=== PATIENT | female | born 1945 | race Caucasian/White ===

== ENCOUNTER 2024-11-05 09:08 | Outpatient (AMB) | payer MEDICARE, OTHER, SELFPAY ==
--- NOTE | 2024-11-05 09:09 | A.OFFVIS_ITS ---
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 She is presenting with follow-up after cataract surgery and concerns of hallucinations and cognitive challenges. She underwent cataract surgery recently, and her vision has improved significantly. There is an ongoing issue of hallucinations, for which she is being treated with quetiapine, and these incidents are becoming more frequent. Cognitive difficulties are a concern as she occasionally experiences confusion over personal relationships. Her memory is reported to be functioning adequately, but attention deficits are recognized. Social interaction appears be neficial for her alertness. The decision was made to continue with the current medication regimen, without modifying the quetiapine dosage at this time. [facility] Medical History (Updated 11/05/24 @ 09:13 by John Baptitse MD) Anxiety Carpal tunnel syndrome Migraine Cerebral microvascular disease Mild dementia Alzheimer dementia Surgical History (Updated 10/29/24 @ 08:17 by Meghan Ling CMA) S/P aortic valve replacement Review of Systems Const Details: - Allergic/Immunologic: Denies recent illnesses or infections. - Eyes: Reports improved vision post-cataract surgery. - Neurological: Reports good memory; Denies new neurological symptoms. - Psychiatric: Reports good mood; Denies depression, reports hallucinations and confusion. Physical Exam Neuro Other: Mental Status: Alert and awake with normal spontaneity of speech fluency comprehension and affect. She could not recognize the person with her. Cranial Nerves: CN II: Visual butt full to confrontation, visual acuity intact. CN III, IV, : Pupils equal, round, reactive to light and accommodation. Extraocular movements are normal. CN V: Facial sensation is normal. CN VII: Facial movements symmetrical. CN VIII: Hearing intact to bedside conversation is normal. CN IX, X: Palate elevates symmetrically. CN XI: Shoulder shrug and head turn symmetrical. CN XII: Tongue midline without atrophy or fasciculations. Gait and Station: No obvious gait abnormality. No ataxia or instability. Extrapyramidal: Full facial expressions and blinking. No rigidity. Movements are appropriate with no tremor or abnormality. Speech: Normal; no dysarthria or tremor. Assessment & Plan Assessment & Plan (1) Alzheimer dementia: Comment: NCV/EMG UE This is a normal study. 11/10/21. MRI brain WO at [facility] in Oct 2018: mild to mod MVD and mild diff atrophy. Code(s): G30.9 - Alzheimer's disease, unspecified; F02.80 - Dementia in other diseases classified elsewhere, unspecified severity, without behavioral disturbance, psychotic disturbance, mood disturbance, and anxiety Category: Medical Qualifiers: Alzheimer's disease onset: late onset Dementia severity: moderate Dementia behavioral or psychological symptom: with other behavioral disturbance Qualified Code(s): G30.1 - Alzheimer's disease with late onset; F02.B18 - Dementia in other diseases classified elsewhere, moderate, with other behavioral disturbance Plan Impression: Moderately severe dementia probably of Alzheimer type with behavioral issues Rec: a: Memantine 10mg bid b: Quetiapine 25mg one at night c: Sertraline 25mg one in am Medications: New memantine 10 mg PO BID 180 tabs 1RF quetiapine 25 mg PO BEDTIME 90 tabs 1RF sertraline 25 mg PO DAILY 90 tabs 1RF Coding Level of Care Code Est Pt Level 4 (24250) Diagnoses Moderate late onset Alzheimer's dementia with other behavioral disturbance G30.1; F02.B18 Alzheimer's disease onset: late onset Dementia severity: moderate Dementia behavioral or psychological symptom: with other behavioral disturbance
--- OUTSIDE RECORDS SUMMARY | 2024-11-05 09:50 | XMS_ITS | Clinical Summary ---
Author Organization [address] Address [address] [place] [phone] Phone Care Team Providers [employer] Name Role Phone Sheeba Hayes MD Primary Care Provider [phone] Allergies Active Allergy Reactions Criticality Noted Date Comments Lisinopril Cough 10/05/2011 Medications amoxicillin (AMOXIL) 500 mg capsule TAKE 4 CAPSULES BY MOUTH 1 HOUR PRIOR TO DENTAL APT. 06/30/19 22 Active memantine (NAMENDA) 10 mg tablet Take 1 tablet (10 mg total) by mouth 2 (two) times a day. 01/07/20 21 Active Arexvy, PF, 120 mcg/0.5 mL suspension for reconstitution 12/24/19 23 Active sertraline (ZOLOFT) 25 mg tablet Take 1 tablet (25 mg total) by mouth 1 (one) time each day. 08/23/19 23 Active Shingrix, PF, 50 mcg/0.5 mL suspension for reconstitution 12/09/19 23 Active losartan (COZAAR) 25 mg tablet TAKE 1 TABLET BY MOUTH EVERY DAY 90 tablet 1 02/23/20 24 Active QUEtiapine (SEROquel) 25 mg tablet Take 1 tablet (25 mg total) by mouth 1 (one) time each day. Active fluticasone propionate (FLONASE) 50 mcg/actuation nasal spray Administer 2 sprays into each nostril 1 (one) time each day. Shake gently. Before first use, prime pump. After use, clean tip and replace cap. 16 g 5 03/29/19 25 026 Active Additional Information Patient not taking.Reported on 10/17/2024 warfarin (COUMADIN) 2.5 mg tablet TAKE 1-2 TABLETS BY MOUTH DAILY. 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 Status post aortic valve rep lacement with bioprosthetic valve 01/26/2024 Dementia ([facility] V24, [facility] V28) 02/19/2019 Influenza A 04/14/2017 Gallstones 06/13/2014 Diverticulosis of sigmoid colon 06/05/2014 Osteopenia 10/21/2010 Aneurysm of thoracic aorta ([facility] V24) 011 Overview (05/20/2023): ascending aortic aneurysm up to 4.5 cm in diameter at the level of the main pulmonary artery, MRi of chest 2011- no change, being followed with Dr. 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 (Primary Dx); Status post aortic valve replacement with bioprosthetic valve 10/17/2024 10:00 AM EDT Consult [address] [phone] Sheeba Hayes MD Severe late onset Alzheimer's dementia without behavioral disturbance, psychotic disturbance, mood disturbance, or anxiety (CMS/HCC V24, CMS/HCC V28) (Primary Dx); Thoracic aortic aneurysm without rupture, unspecified part (CMS/HCC V24); Hypertension goal BP (blood pressure) < 140/90; History of heart valve replacement; Hyperchylomicronemia; Preop cardiovascular exam 10/17/2024 Anticoagulation - Warfarin Visit [address] [phone] Minda Sanderson LPN [facility] (current) use of anticoagulants (Primary Dx); Status post aortic valve replacement with bioprosthetic valve 10/02/2024 Anticoagulation - Warfarin Visit [address] [phone] Niru Moreno LPN [facility] (current) use of anticoagulants (Primary Dx); Status post aortic valve replacement with bioprosthetic valve 09/18/2024 Anticoagulation - Warfarin Visit [address] [phone] 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 (Primary Dx); Status post aortic valve replacement with bioprosthetic valve 09/06/2024 9:45 AM EDT Office Visit [address] [phone] Sheeba Hayes MD Status post aortic valve replacement with bioprosthetic valve (Primary Dx); [facility] (current) use of anticoagulants; Severe late onset Alzheimer's dementia without behavioral disturbance, psychotic disturbance, mood disturbance, or anxiety (CMS/HCC V24, CMS/HCC V28) 09/04/2024 [facility] [address] [phone] 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 (Primary Dx); Status post aortic valve replacement with bioprosthetic valve 08/21/2024 Anticoagulation - Warfarin Visit [address] [phone] 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 (Primary Dx); Status post aortic valve replacement with bioprosthetic valve 08/17/2024 Telephone Adult Medicine [address] [phone] Sheeba Hayes MD Forms/questionnaires 08/13/2024 Telephone Adult Medicine [address] [phone] Sheeba Hayes MD Forms/questionnaires 08/07/2024 Anticoagulation - Warfarin Visit [address] [phone] Minda Sanderson LPN [facility] (current) use of anticoagulants (Primary Dx); Status post aortic valve replacement with bioprosthetic valve from Last 3 Months Immunizations Name Administration Dates Next Due Influenza Quadravalent, MDCK , 0.5ml, preservative free (Flucelvax) 6mo and older 03/20/2018 Influenza trivalent, 0.5mL ( Fluzone High-dose) 65yo and older 12/23/2020,02/19/2019 Influenza trivalent, with pr eservative (Fluzone; Afluria) 6mo and older 12/04/2012,04/02/2012,02/27/2008,02/15,02/24/2006 Influenza, Unspecified 12/22/2019 Pneumococcal conjugate 13 va lent (Prevnar 13, PCV13) 2mo and older 08/26/2015 Pneumococcal polysaccharide 23 valent (Pneumovax 23) 2yo and older 06/24/2010 Td Tetanus diptheria (Tdvax) 7yo and older 06/13/2003 Tdap Tetanus diptheria acell ular pertussis (Boostrix; Adacel) 7yo and older 11/17/2022,12/04/2012 Zoster Live 11/28/2015 Surgical History Surgery Date Site/Laterality Comments AORTIC VALVE REPLACEMENT 02/08/06 PROCEDURE: HISTORICAL AORTIC VALVE REPL TUBAL LIGATION PROCEDURE: HISTORICAL TUBAL LIGATION COLONOSCOPY 03/18 PROCEDURE: VA COLONOSCOPY STOMA DX INCLUDING COLLJ SPEC SPX OTHER SURGICAL HISTORY 04/16/14 PROCEDURE: COLON CA SCRN NOT HI RSK IND; COMMENT: tics; repeat in ten yrs if healthy Medical History Medical History Date Comments Other and unspecified hyperlipidemia DX:Other and unspecified hyperlipidemia Obesity, unspecified DX:Obesity, unspecified Aortic valve disorders 09/02/2005 DX:Aortic valve disorders; COMMENT: severe, echo 06/17 antibiotic prophylaxis Hypertension goal BP (blood pressure) < 140/90 03/13/2010 DX:Hypertension goal BP (blo od pressure) < 140/90 Anticoagulated on Coumadin 06/20/2014 DX:An ticoagulated on Coumadin Family History Medical History Relation Name Comments ALS Father age 71 Breast cancer Sister dx'd 60s Coronary artery disease Neg Hx no p remature CAD Relation Name Status Comments Father Sister dx'd 60s Alive Social History Tobacco Use Types Packs/Day Years Used Date Smoking Tobacco: Former Cigarettes Q uit: 03/14/1974 Smokeless Tobacco: Never Tobacco Cessation:Counseling Given: Not Answered Alcohol Use Standard Drinks/Week Comments Yes 0 (1 standard drink = 0.6 oz pur e alcohol) Housing Instability Answer Date Recorde d Are you worried that in the next 2 months you may not have stable housing? No 09/04/2024 Food Access & Nutrition Answer Date Rec orded Do you have access to a vari ety of food including fruits and vegetables? Yes 09/04/2024 Access to Healthcare Answer Date Record ed Within the last 3 months, ho w many times did you visit the emergency department for your medical care? 1 09/04/2024 Health Literacy Answer Date Recorded How often do you need to hav e someone help you when you read instructions, pamphlets, or other written material from your doctor or pharmacy? Often 09/04/2024 Caregiver: How often do you need to have someone help you when you read instructions, pamphlets, or other written material from your doctor or pharmacy? Not on file 09/04/2024 Financial Risk Answer Date Recorded How hard is it for you to pa y for the very basics like food, housing, medical care, and air conditioning / heating? Patient declined 09/04/2024 Transportation Answer Date Recorded Has the lack of transportati on kept you from meetings, work, or from getting things needed for daily living? No Has the lack of transportati on kept you from medical appointments or from getting medications? No 09/04/2024 Social Isolation Answer Date Recorded How often do you feel lonely or isolated from those around you? Sometimes 09/04/2024 Food Risk Answer Date Recorded Within the past 12 months we worried whether our food would run out before we got money to buy more. Never true 09/04/2024 Within the past 12 months th e food we bought just didn't last and we didn't have money to get more. Never true 09/04/2024 Dependent Care Answer Date Recorded Do you need help finding or paying for care for your loved ones. For example, child psychology teacher or elderly care for an older adult? Patient declined 09/04/2024 Education Answer Date Recorded Do you think completing more education or training, like finishing a GED, going to college, or learning a trade, would be helpful for you? Patient declined 09/04/2024 Employment and Income Answer Date Recor ded During the last four weeks, have you been actively looking for work? No 09/04/2024 Living Situation Answer Date Recorded What is your living situation? 0 09/04/2024 Comments Unknown Sex and Gender Information Value Date Recorded Sex Assigned at Not on file Legal Sex Female 4:48 AM EST Gender Identity Not on file Sexual Orientation Not on file Obstetrics History Last Filed Vital Signs Vital Sign Reading Time Taken Comments Blood Pressure 108/70 10/17/2024 10:29 AM EDT Pulse 74 10/17/2024 10:29 AM EDT Temperature 36.4 C (97.5 F) 10/17/2024 10:29 AM EDT Respiratory Rate 14 10/17/2024 10:29 AM EDT Oxygen Saturation 96% 10/17/2024 10:29 AM EDT Inhaled Oxygen Concentration - - Weight 73.9 kg (163 lb) 10/17/2024 10:29 AM EDT Height 160 cm (5' 3 ) 10/17/2024 10:29 AM EDT Body Mass Index 28.87 10/17/2024 10:29 AM EDT Plan of Treatment Upcoming Encounters Date Type Department Care Team (Late st Contact Info) Description 02/18/2025 2:30 PM EST Office Visit Adult Medicine [facility] [address] [place] [phone] Sheeba Hayes MD [address] [place] [address] Health Maintenance Due Date Last Done Comments Hepatitis C Screening 02/20/2022 Falls Risk Assessment 11/18/2023 11/17/2022 Medicare Annual Wellness Visit 11/18/2023 11/17/2022 COVID-19 Vaccine ( season) 2024 12/05/2023, 05/26/2023, 12/23/2022, Additional history exists Influenza Vaccine (#1) 2024 , 12/14/2021, 12/23/2020, Additional history exists Hypertension/CHF/CAD Annual BMP Blood Test 04/12/2025 04/12/2024, 03/23/2024 Social Influencers of Health Screening 09/04/2025 09/04/2024 Osteoporosis Screening (Bone Density Screening) 06/16/2026 06/16/2016 Cholesterol Screening (Lipid Panel) 09/04/2026 09/04/2021 DTaP,Tdap,and Td Vaccines (4 - Td or Tdap) 11/17/2032 11/17/2022, 12/04/2012, 06/13/2003 Pneumococcal Vaccine: 50+ Years Completed 08/26/2015, 06/24/2010 RSV Immunization Adult Patients Completed 12/23/2022, 12/08/2022 Zoster Vaccines Completed 05/26/2023, 11/13, 11/28/2015, Additional history exists Depression Screening Completed 09/04/2024 HIB Vaccines Aged Out No longer eligi ble based on patient's age to complete this topic HPV Vaccines Aged Out No longer eligi ble based on patient's age to complete this topic Hepatitis A Vaccines Aged Out No long er eligible based on patient's age to complete this topic Hepatitis B Vaccines Aged Out No long er eligible based on patient's age to complete this topic IPV Vaccines Aged Out No longer eligi ble based on patient's age to complete this topic MMR Vaccines Aged Out No longer eligi ble based on patient's age to complete this topic Meningococcal ACWY Vaccine Aged Out N o longer eligible based on patient's age to complete this topic Meningococcal B Vaccine Aged Out No l onger eligible based on patient's age to complete this topic RSV Immunization Patients Under 20 months Aged Out No longer eligible based on patient's age to complete this topic Varicella Vaccines Aged Out No longer eligible based on patient's age to complete this topic Procedures Procedure Name Priority Date/Time Associated Diagnosis Comments PROTHROMBIN TIME WITH INR 10/23/2024 PROTHROMBIN TIME WITH INR Routine 10/23/2024 ECG Routine 10/17/2024 2:55 PM EDT PROTHROMBIN TIME WITH INR 10/17/2024 PROTHROMBIN TIME WITH INR 10/16/2024 PROTHROMBIN TIME WITH INR Routine 10/16/2024 PROTHROMBIN TIME WITH INR 10/02/2024 PROTHROMBIN TIME WITH INR Routine 10/02/2024 PROTHROMBIN TIME WITH INR 09/18/2024 PROTHROMBIN TIME WITH INR Routine 09/18/2024 PROTHROMBIN TIME WITH INR 09/04/2024 PROTHROMBIN TIME WITH INR Routine 09/04/2024 PROTHROMBIN TIME WITH INR 08/21/2024 PROTHROMBIN TIME WITH INR Routine 08/21/2024 PROTHROMBIN TIME WITH INR 08/07/2024 PROTHROMBIN TIME WITH INR Routine 08/07/2024 COMPREHENSIVE METABOLIC PANEL Routine 03/23/2024 2:01 PM EST Dementia (CMS/HCC V24, CMS/HCC V28) Sleep apnea Hyperlipidemia Obesity DXA BONE DENSITY STUDY 1+ SITS AXIAL SKEL Routine 06/16/2016 3:57 PM EDT Other specified disorders of bone density and structure, unspecified site from Last 3 Months or Most Recently Relevant to Health Maintenance Results * Prothrombin time with INR (10/23/2024) Only the most recent of15 resultswithin the time period is included. us Provider [facility] LAB BLOOD ORDERABLES Fin al Result * ECG (10/17/2024 2:55 PM EDT) Historical Provider ECG ORDERABLES Final Res ult * Comprehensive metabolic panel (03/23/2024 2:01 PM EST) Sodium 140 133 - 145 mmol/L LAB CHEMISTRY METHOD 03/24/2024 12:[address] [facility] Potassium 4.5 3.5 - 5.5 mmol/L LAB CHEMISTRY METHOD 03/24/2024 12:[address] [facility] Chloride 108 96 - 110 mmol/L LAB CHEMISTRY METHOD 03/24/2024 12:[address] [facility] CO2 28 21 - 32 mmol/L LAB CHEMISTRY METHOD 03/24/2024 12:[address] [facility] Anion Gap 4 3 - 11 LAB CHEMISTRY METHOD 03/24/2024 12:[address] [facility] Glucose 81 70 - 100 mg/dL LAB CHEMISTRY METHOD 03/24/2024 12:[address] [facility] BUN 23 5 - 25 mg/dL LAB CHEMISTRY METHOD 03/24/2024 12:[address] [facility] Creatinine 0.96 0.50 - 1.10 mg/dL LAB CHEMISTRY METHOD 03/24/2024 12:[address] [facility] eGFR 61 >=60 mL/min/1. 73m2 LAB CHEMISTRY METHOD 03/24/2024 12:[address] [facility] Comment:Calculation based on the Chronic Kidney Disease Epidemiology Collaboration (CKD-EPI) equation refit without adjustment for race. BUN/Creatinine Ratio 24.0 LAB CHEMISTRY METHOD 03/24/2024 12:[address] [facility] Calcium 8.6 8.5 - 10.5 mg/dL LAB CHEMISTRY METHOD 03/24/2024 12:[address] [facility] AST (SGOT) 18 10 - 42 unit/L LAB CHEMISTRY METHOD 03/24/2024 12:[address] [facility] ALT (SGPT) 26 10 - 60 unit/L LAB CHEMISTRY METHOD 03/24/2024 12:[address] [facility] Alkaline Phosphatase 89 42 - 121 unit/L LAB CHEMISTRY METHOD 03/24/2024 12:[address] [facility] Total Protein 6.4 6.0 - 8.0 g/dL LAB CHEMISTRY METHOD 03/24/2024 12:[address] [facility] Albumin 3.9 3.2 - 5.0 g/dL LAB CHEMISTRY METHOD 03/24/2024 12:[address] [facility] Total Bilirubin 0.7 0.0 - 1.4 mg/dL LAB CHEMISTRY METHOD 03/24/2024 12:[address] [facility] Blood Venous blood specimen / Unknown Venipuncture / Unknown 03/23/2024 2:01 PM EST 03/23/2024 2:01 PM EST Sheeba Hayes MD LAB BLOOD ORDERABLES Final Resul t [facility] [address] [place] [address], * DXA BONE DENSITY STUDY 1+ SITS AXIAL SKEL (06/16/2016 3:57 PM EDT) Anatomical Region Laterality Modality Bone Densitometr y 06/11/2016 10:5 7 AM EDT Narrative 06/16/2016 5:25 PM EDT BONE DENSITY Lumbar Spine T-score is -0.4 (SD relative to 20-29 y/o adult) Z-score is +1.8 (SD relative to age matched peers) This is normal by criteria defined by the WHO. Left Hip T-score is -1.8 Z-score is +0.1 This is consistent with osteopenia by criteria defined by the WHO. Comparison exam(s): significant decrease in bone density of hip when compared to most recent bone density examination Confidence level is +/-95%. Impression: Based on the World Health Organization criteria, Minda Townsend should be classified as having osteopenia. This patient has a 16% risk of major osteoporotic fracture and a 4.3% risk of hip fracture over the next 10 years. (World Health Organization Fracture Risk Assessment) [facility] Department of Internal Medicine recommends using National Osteoporosis Foundation (NOF) guidelines in treatment decisions related to osteoporosis. NOF guidelines suggest considering treatment for postmenopausal women and men aged 50 or older presenting with the following: History of hip or vertebral fracture. T-score less than or equal to -2.5 (DXA) at the femoral neck, total hip, or spine, after appropriate evaluation to exclude secondary causes. Low bone mass (T-score between -1.0 and -2.5 at the femoral neck or spine) AND a 10-year probability of a hip fracture greater than or equal to 3% OR a 10-year probability of a major osteoporosis-related fracture greater than or equal to 20% based on the [place]-adapted WHO algorithm Please note that all treatment decisions require clinical judgment and consideration of individual patient factors, including patient preferences, co-morbidities, previous drug use, risk factors not captured in the FRAX model (e.g., frailty, falls, vitamin D deficiency, increased bone turnover, interval significant decline in bone density) and possible under- or over-estimation of fracture risk by FRAX. Procedure Note Lilli Mojica MD - 04/15/2023 BONE DENSITY Lumbar Spine T-score is -0.4 (SD relative to 20-29 y/o adult) Z-score is +1.8 (SD relative to age matched peers) This is normal by criteria defined by the WHO. Left Hip T-score is -1.8 Z-score is +0.1 This is consistent with osteopenia by criteria defined by the WHO. Comparison exam(s): significant decrease in bone density of hip whencompared to most recent bone density examination Confidence level is +/-95%. Impression: Based on the World Health Organization criteria, Minda Townsend should beclassified as having osteopenia. This patient has a 16% risk of majorosteoporotic fracture and a 4.3% risk of hip fracture over the next 10years. (World Health Organization Fracture Risk Assessment) [facility] Department of Internal Medicine recommendsusing National Osteoporosis Foundation (NOF) guidelines in treatmentdecisions related to osteoporosis. NOF guidelines suggest consideringtreatment for postmenopausal women and men aged 50 or older presentingwith the following: History of hip or vertebral fracture. T-score less than or equal to -2.5 (DXA) at the femoral neck, total hip,or spine, after appropriate evaluation to exclude secondary causes. Low bone mass (T-score between -1.0 and -2.5 at the femoral neck or spine)AND a 10-year probability of a hip fracture greater than or equal to 3% ORa 10-year probability of a major osteoporosis-related fracture greaterthan or equal to 20% based on the [place]-adapted WHO algorithm Please note that all treatment decisions require clinical judgment andconsideration of individual patient factors, including patientpreferences, co-morbidities, previous drug use, risk factors not capturedin the FRAX model (e.g., frailty, falls, vitamin D deficiency, increasedbone turnover, interval significant decline in bone density) and possibleunder- or over-estimation of fracture risk by FRAX. Natividad HECK DXA PROCEDURES Final Resu lt from Last 3 Months or Most Recently Relevant to Health Maintenance Insurance MEDICARE [employer] Care Teams [employer] Relationship Specialty Start Date End Date Sheeba Hayes MD [address] [place] [address] PCP - General Internal Medicine 10/22/15
--- OUTSIDE RECORDS SUMMARY | 2024-11-05 09:50 | XMS_ITS ---
Author Name [facility] Organization Unknown Care Team Organization Name Specialty Phone Email Start Date End Da te [facility] ACO 10/31/2024 [facility] 08/20/2022 10/31/2023 [facility] 01/19/2022
== END 2024-11-05 09:18 | disposition home or self-care (01) ==
LOC: HO.HSM 09:09
PROVIDERS: PCP Internal Medicine; Referring Provider Internal Medicine; Visit Provider Psychiatry & Neurology Neurology
DX: G30.1 Alzheimer's disease with late onset (principal); F02.B18 Dementia in other diseases classified elsewhere, moderate, with other behavioral disturbance
CPT/HCPCS: 99214

== ENCOUNTER → 2024-11-05 09:08 | Outpatient (BNVA) | payer MEDICARE, OTHER, SELFPAY | PROVIDERS: PCP Internal Medicine; Referring Provider Internal Medicine; Visit Provider Psychiatry & Neurology Neurology | DX: G30.1 Alzheimer's disease with late onset (principal); F02.B18 Dementia in other diseases classified elsewhere, moderate, with other behavioral disturbance | CPT/HCPCS: 99212 ==